=== PATIENT | female | born 1955 | race Caucasian/White ===

== ENCOUNTER 2018-12-11 13:15 | Inpatient (IN) | payer BC ==
[2018-12-11] MEDS: SOD CHLORIDE 0.9% 500 ML IV (14:01)
[2018-12-11 14:09] LABS: ADD MAN DIFF? NO
[2018-12-11 14:12] LABS: WHITE BLOOD COUNT 6.5 10^3/ul (4.8-10.8)
[2018-12-11 14:12] LABS: BASOPHILS % 0.2 % (0.0-2.0); EOSINOPHILS # 0.1 10^3/ul (0.0-0.5); EOSINOPHILS % 1.1 % (0.0-7.0); HEMATOCRIT 25.3 % (37.0-47.0); HEMOGLOBIN 7.9 g/dl (12.0-16.0); LYMPHOCYTES # 0.9 10^3/ul (0.8-2.9); LYMPHOCYTES % 13.3 % (15.0-51.0); MEAN CORPUSCULAR HGB CONC 31.2 g/dl (32.0-37.0); MEAN CORPUSCULAR VOLUME 102.4 fl (82.0-101.0); MEAN PLATELET VOLUME 9.2 fl (7.4-10.4); MONOCYTE # 0.8 10^3/ul (0.3-0.9); MONOCYTES % 11.5 % (0.0-11.0); NEUTROPHIL # 4.8 10^3/ul (1.6-7.5); PLATELET COUNT 132 10^3/UL (140-415); RED BLOOD COUNT 2.47 10^6/ul (4.20-5.40); RED CELL DISTRIBUTION WIDTH 16.3 % (11.5-14.5)
[2018-12-11] MEDS: DILTIAZEM 25 MG INJ IV (14:17)
[2018-12-11 14:29] LABS: ALANINE AMINOTRANSFERASE 7 IU/L (13-69); ALBUMIN/GLOBULIN RATIO 0.54; ALKALINE PHOSPHATASE 84 IU/L (42-121); ANION GAP 12 (5-13); ASPARTATE AMINO TRANSFERASE 35 IU/L (15-46); BILIRUBIN,INDIRECT 0.3 mg/dl (0-1.1); BILIRUBIN,TOTAL 0.3 mg/dl (0.2-1.3); BLOOD UREA NITROGEN 67 mg/dl (7-20); CALCIUM 9.4 mg/dl (8.4-10.2); CARBON DIOXIDE 16 mmol/L (21-31); CHLORIDE 115 mmol/L (97-110); CREATININE 4.13 mg/dl (0.44-1.00); Estimated GFR 11 mL/min (>60); GLUCOSE 105 mg/dl (70-220); POTASSIUM 4.3 mmol/L (3.5-5.1); SODIUM 143 mmol/L (135-144); TOTAL PROTEIN 8.5 g/dl (6.1-8.1)
[2018-12-11 14:31] LABS: INR 1.14; PROTIME 14.7 Sec (11.9-14.9); PT RATIO 1.1
[2018-12-11 14:32] LABS: PARTIAL THROMBOPLASTIN TIME 26.9 Sec (23.0-35.0)
[2018-12-11 14:40] LABS: TROPONIN-I 0.026 ng/ml (0.000-0.120)
[2018-12-11] MEDS: SOD CHLORIDE 0.9% 1,000 ML IV ×2 (14:52→19:26)
[2018-12-11] MEDS ORDERED: ONDANSETRON 4 MG INJ IV ×2 (19:30→20:30)
[2018-12-11] MEDS ORDERED: ACETAMINOPHEN 325 MG TAB PO (19:30)
[2018-12-11 20:15] LABS: AMMONIA 52 umol/l (9-30)
[2018-12-11] MEDS ORDERED: NACL 0.9% 3 ML SYG IV (20:30)
[2018-12-11] MEDS: SOD CHLORIDE 0.45% 1,000 ML IV (21:30)
[2018-12-11 22:25] LABS: CK-MB 1.06 ng/ml (0.0-2.4)
[2018-12-11 22:26] LABS: CREATINE KINASE < 20 IU/L (23-200); TROPONIN-I 0.027 ng/ml (0.000-0.120)
[2018-12-11] MEDS ORDERED: GLUCAGON 1 MG INJ IM (22:30)
[2018-12-11] MEDS ORDERED: GLUCOSE GEL 15 GRAM TUBE BUCCAL (22:30)
[2018-12-11] MEDS ORDERED: GLUCOSE GEL 15 GRAM TUBE PO ×2 (22:30)
[2018-12-11] MEDS ORDERED: DEXTROSE 50% 50 ML SYRINGE IV (22:30)
[2018-12-11] MEDS: CITRIC ACID/NA CITRATE 30 ML CUP PO (22:46)
[2018-12-11] MEDS: LACTULOSE 30ML CUP PO (22:46)
[2018-12-12] MEDS: LACTULOSE 30ML CUP PO ×4 (00:39→17:14)
[2018-12-12] MEDS: INSULIN GLARGINE [LANTus] (100 UNITS/ML) SYG SC ×3 (00:48→21:19)
[2018-12-12] MEDS: ACCU-CHEK XX (02:00)
[2018-12-12] MEDS: ACETAMINOPHEN 325 MG TAB PO (03:01)
[2018-12-12 03:20] LABS: CK-MB 1.07 ng/ml (0.0-2.4); CREATINE KINASE < 20 IU/L (23-200); TROPONIN-I 0.028 ng/ml (0.000-0.120)
[2018-12-12] MEDS: LEVOTHYROXINE 50 MCG TAB PO (06:27)
[2018-12-12 07:21] LABS: OCCULT BLOOD STOOL POSITIVE (NEGATIVE)
[2018-12-12] MEDS: DEXTROSE 50% 50 ML SYRINGE IV (07:43)
[2018-12-12] MEDS: INSULIN ASPART [NOVOLOG] 3 ML PEN SC ×4 (07:55→21:00)
[2018-12-12 08:25] LABS: ADD MAN DIFF? NO
[2018-12-12 08:29] LABS: ABNORMAL IP MESSAGE 1; BASOPHILS % 0.3 % (0.0-2.0); LYMPHOCYTES # 0.5 10^3/ul (0.8-2.9); LYMPHOCYTES % 12.1 % (15.0-51.0); MEAN CORPUSCULAR HEMOGLOBIN 31.8 pg (29.0-33.0); MEAN CORPUSCULAR VOLUME 99.5 fl (82.0-101.0); MEAN PLATELET VOLUME 8.4 fl (7.4-10.4); MONOCYTE # 0.5 10^3/ul (0.3-0.9); MONOCYTES % 12.6 % (0.0-11.0); NEUTROPHIL # 2.9 10^3/ul (1.6-7.5); PLATELET COUNT 82 10^3/UL (140-415); RED BLOOD COUNT 2.01 10^6/ul (4.20-5.40); RED CELL DISTRIBUTION WIDTH 16.1 % (11.5-14.5)
[2018-12-12 08:29] LABS: WHITE BLOOD COUNT 3.9 10^3/ul (4.8-10.8)
[2018-12-12 08:33] LABS: POSITIVE DIFF @See below
[2018-12-12 08:36] LABS: HEMOGLOBIN 6.4 g/dl (12.0-16.0)
[2018-12-12 09:00] LABS: DIGOXIN 1.2 ng/ml (1.0-2.0)
[2018-12-12] MEDS ORDERED: FUROSEMIDE 40 MG TAB PO (09:00)
[2018-12-12 09:01] LABS: ALANINE AMINOTRANSFERASE 12 IU/L (13-69); ALBUMIN 2.4 g/dl (3.3-4.9); ALBUMIN/GLOBULIN RATIO 0.54; ALKALINE PHOSPHATASE 69 IU/L (42-121); ANION GAP 8 (5-13); ASPARTATE AMINO TRANSFERASE 27 IU/L (15-46); BILIRUBIN,INDIRECT 0.1 mg/dl (0-1.1); BILIRUBIN,TOTAL 0.1 mg/dl (0.2-1.3); BLOOD UREA NITROGEN 63 mg/dl (7-20); CALCIUM 8.7 mg/dl (8.4-10.2); CARBON DIOXIDE 15 mmol/L (21-31); CHLORIDE 119 mmol/L (97-110); CHOL/HDL RATIO 5.1 RATIO; CHOLESTEROL 72 mg/dl (100-200); CREATININE 4.09 mg/dl (0.44-1.00); Estimated GFR 11 mL/min (>60); GLUCOSE 107 mg/dl (70-220); HDL CHOLESTEROL 14 mg/dl (35-98); LDL CHOLESTEROL,CALCULATED 36 mg/dl; SODIUM 142 mmol/L (135-144); TOTAL PROTEIN 6.8 g/dl (6.1-8.1); TRIGLYCERIDES 111 mg/dl (0-149)
[2018-12-12 09:13] LABS: HEMOGLOBIN A1C 5.9 % (0-5.9)
[2018-12-12] MEDS: GABAPENTIN 300 MG CAP PO ×3 (10:26→20:46)
[2018-12-12] MEDS: RIFAXIMIN 550 MG TAB PO ×2 (10:26→20:46)
[2018-12-12] MEDS: FAMOTIDINE 20 MG TAB PO (10:27)
[2018-12-12] MEDS: MULTIVITAMINS THERAPEUTIC TAB PO (10:27)
[2018-12-12] MEDS: FERROUS SULFATE (EC) 325 MG TAB PO (10:27)
[2018-12-12] MEDS: ALBUMIN HUMAN 25% 100 ML IV ×2 (10:34→17:14)
[2018-12-12 12:01] LABS: FOLATE 7.8 ng/ml (2.8-20.0)
[2018-12-12] MEDS: DIGOXIN 0.125 MG TAB PO (12:43)
[2018-12-12] MEDS: CEFTRIAXONE 1 GM/50 ML (PMX) 50 ML IVPB (14:27)
[2018-12-12] MEDS: PROPRANOLOL 10 MG TAB PO ×2 (14:27→20:46)
[2018-12-12 16:10] LABS: ADD UMIC YES; UR ASCORBIC ACID NEGATIVE (NEGATIVE); UR BACTERIA MANY /HPF (NONE SEEN); UR BILIRUBIN (Dip) NEGATIVE (NEGATIVE); UR BLOOD (Dip) 2+ mg/dL (NEGATIVE); UR CLARITY TURBID (CLEAR); UR COLOR AMBER (YELLOW); UR GLUCOSE (Dip) NEGATIVE (NEGATIVE); UR KETONES (Dip) NEGATIVE (NEGATIVE); UR LEUKOCYTE ESTERASE (Dip) 2+ Leu/ul (NEGATIVE); UR NITRITE (Dip) NEGATIVE (NEGATIVE); UR RBC 93 /HPF (0-5); UR SPECIFIC GRAVITY (Dip) 1.011 (1.003-1.030); UR SQUAMOUS EPITHELIAL CELL FEW /HPF (FEW); UR TOTAL PROTEIN (Dip) 2+ mg/dl (NEGATIVE); UR UROBILINOGEN (Dip) NEGATIVE (NEGATIVE); UR WBC > 182 /HPF (0-5)
[2018-12-12 16:20] LABS: SODIUM,URINE RANDOM 81 mmol/L (30-90)
[2018-12-12 16:20] LABS: CREATININE,URINE RANDOM 37.57 mg/dl (20-320)
[2018-12-12] MEDS: PANTOPRAZOLE 40 MG INJ IV (17:14)
[2018-12-12] MEDS: SOD CHLORIDE 0.45% 1,000 ML IV (20:45)
[2018-12-12 22:13] LABS: IMMEDIATE SPIN CROSSMATCH 1 2
[2018-12-13] MEDS: LACTULOSE 30ML CUP PO ×4 (00:59→17:03)
[2018-12-13] MEDS: ALBUMIN HUMAN 25% 100 ML IV ×3 (00:59→16:36)
[2018-12-13] MEDS: ACCU-CHEK XX (02:00)
[2018-12-13 04:31] LABS: TYPE AND SCREEN 1
[2018-12-13] MEDS: PANTOPRAZOLE 40 MG INJ IV ×2 (06:01→17:00)
[2018-12-13] MEDS: LEVOTHYROXINE 50 MCG TAB PO (06:01)
[2018-12-13 06:12] LABS: ADD MAN DIFF? NO
[2018-12-13 06:21] LABS: ABNORMAL IP MESSAGE 1; BASOPHILS % 0.2 % (0.0-2.0); EOSINOPHILS # 0.1 10^3/ul (0.0-0.5); EOSINOPHILS % 1.6 % (0.0-7.0); HEMATOCRIT 26.3 % (37.0-47.0); HEMOGLOBIN 8.7 g/dl (12.0-16.0); LYMPHOCYTES # 0.7 10^3/ul (0.8-2.9); LYMPHOCYTES % 11.7 % (15.0-51.0); MEAN CORPUSCULAR HEMOGLOBIN 31.8 pg (29.0-33.0); MEAN CORPUSCULAR HGB CONC 33.1 g/dl (32.0-37.0); MEAN PLATELET VOLUME 8.4 fl (7.4-10.4); MONOCYTE # 0.6 10^3/ul (0.3-0.9); MONOCYTES % 10.5 % (0.0-11.0); NEUTROPHIL # 4.3 10^3/ul (1.6-7.5); NEUTROPHILS % 74.6 % (39.0-77.0); PLATELET COUNT 97 10^3/UL (140-415); RED BLOOD COUNT 2.74 10^6/ul (4.20-5.40); RED CELL DISTRIBUTION WIDTH 16.8 % (11.5-14.5)
[2018-12-13 06:21] LABS: WHITE BLOOD COUNT 5.7 10^3/ul (4.8-10.8)
[2018-12-13 06:28] LABS: POSITIVE DIFF @See below
[2018-12-13 06:38] LABS: INR 1.21; PROTIME 15.4 Sec (11.9-14.9); PT RATIO 1.2
[2018-12-13 06:39] LABS: PARTIAL THROMBOPLASTIN TIME 31.5 Sec (23.0-35.0)
[2018-12-13 07:06] LABS: AMMONIA 15 umol/l (9-30)
[2018-12-13 07:19] LABS: ANION GAP 9 (5-13); BLOOD UREA NITROGEN 54 mg/dl (7-20); CALCIUM 9.2 mg/dl (8.4-10.2); CARBON DIOXIDE 14 mmol/L (21-31); CHLORIDE 119 mmol/L (97-110); CREATININE 3.52 mg/dl (0.44-1.00); Estimated GFR 13 mL/min (>60); GLUCOSE 79 mg/dl (70-220); MAGNESIUM 1.9 mg/dl (1.7-2.5); PHOSPHORUS 5.3 mg/dl (2.5-4.9); POTASSIUM 3.6 mmol/L (3.5-5.1); SODIUM 142 mmol/L (135-144)
[2018-12-13] MEDS: INSULIN ASPART [NOVOLOG] 3 ML PEN SC ×4 (07:54→20:40)
[2018-12-13 07:57] LABS: HEPATITIS B SURFACE ANTIBODY POSITIVE (NEGATIVE)
[2018-12-13 08:06] LABS: ALANINE AMINOTRANSFERASE 14 IU/L (13-69); ALBUMIN 2.8 g/dl (3.3-4.9); ALKALINE PHOSPHATASE 53 IU/L (42-121); ASPARTATE AMINO TRANSFERASE 33 IU/L (15-46)
[2018-12-13] MEDS: FAMOTIDINE 20 MG TAB PO (09:37)
[2018-12-13] MEDS: FERROUS SULFATE (EC) 325 MG TAB PO (09:37)
[2018-12-13] MEDS: MULTIVITAMINS THERAPEUTIC TAB PO (09:37)
[2018-12-13] MEDS: PROPRANOLOL 10 MG TAB PO ×4 (09:37→20:59)
[2018-12-13] MEDS: GABAPENTIN 300 MG CAP PO ×3 (09:37→20:57)
[2018-12-13] MEDS: RIFAXIMIN 550 MG TAB PO ×2 (09:37→20:57)
[2018-12-13] MEDS: NYSTATIN 30 GM POWDER BTL TOP ×2 (09:38→20:58)
[2018-12-13 11:13] LABS: Allen Test ACCEPTAB; Arterial Base Excess -9.8 mmol/L (-3.0-3); Arterial Blood Gas Oxygen Sat 96.3 mmHG (95.0-98.0); Arterial COHb 1.8 % (0.0-3.0); Arterial Fraction of Oxyhgb 94.4 % (93.0-99.0); Arterial HCO3 14.6 mmol/L (22.0-26.0); Arterial MetHb 0.2 % (0.0-1.5); Arterial pCO2 26.8 mmhg (35-45); MODE ROOM AIR; Site Right Radial
[2018-12-13 12:25] LABS: HEPATITIS B CORE ANTIBODY NEGATIVE (NEGATIVE)
[2018-12-13 12:26] LABS: HEPATITIS C VIRAL ANTIBODY REACTIVE (NEGATIVE)
[2018-12-13] MEDS: CEFTRIAXONE 1 GM/50 ML (PMX) 50 ML IVPB (13:16)
[2018-12-13] MEDS: BISACODYL (EC) 5 MG TAB PO (13:19)
[2018-12-13 14:52] LABS: CREATININE, RANDOM URINE 41 mg/dL (20-275); MICROALBUMIN 16.2 mg/dL; MICROALBUMIN/CREATININE RATIO 395 (<30)
[2018-12-13] MEDS: MUPIROCIN 2% 22 GM OINT TOP ×2 (15:42→20:58)
[2018-12-13] MEDS: PEG/ELECTROLYTES 4L BTL PO (15:49)
[2018-12-13 18:46] LABS: PTH CALCIUM 8.1 mg/dL (8.6-10.4)
[2018-12-14] MEDS: ALBUMIN HUMAN 25% 100 ML IV (01:38)
[2018-12-14] MEDS: ACCU-CHEK XX (02:00)
[2018-12-14] MEDS: BISACODYL (EC) 5 MG TAB PO (05:21)
[2018-12-14] MEDS: PEG/ELECTROLYTES 4L BTL PO (05:22)
[2018-12-14] MEDS: PANTOPRAZOLE 40 MG INJ IV ×2 (06:06→17:02)
[2018-12-14] MEDS: LEVOTHYROXINE 50 MCG TAB PO (06:06)
[2018-12-14] MEDS: LACTULOSE 30ML CUP PO ×4 (06:56→17:02)
[2018-12-14] MEDS: INSULIN ASPART [NOVOLOG] 3 ML PEN SC ×4 (08:14→21:00)
[2018-12-14 08:36] LABS: ADD MAN DIFF? NO
[2018-12-14 08:43] LABS: WHITE BLOOD COUNT 7.9 10^3/ul (4.8-10.8)
[2018-12-14 08:43] LABS: ABNORMAL IP MESSAGE 1; BASOPHILS % 0.3 % (0.0-2.0); EOSINOPHILS # 0.2 10^3/ul (0.0-0.5); EOSINOPHILS % 1.9 % (0.0-7.0); HEMATOCRIT 25.1 % (37.0-47.0); HEMOGLOBIN 8.1 g/dl (12.0-16.0); LYMPHOCYTES # 0.9 10^3/ul (0.8-2.9); MEAN CORPUSCULAR HEMOGLOBIN 31.3 pg (29.0-33.0); MEAN CORPUSCULAR HGB CONC 32.3 g/dl (32.0-37.0); MEAN CORPUSCULAR VOLUME 96.9 fl (82.0-101.0); MEAN PLATELET VOLUME 8.9 fl (7.4-10.4); MONOCYTE # 0.7 10^3/ul (0.3-0.9); NEUTROPHIL # 6.1 10^3/ul (1.6-7.5); NEUTROPHILS % 77.3 % (39.0-77.0); PLATELET COUNT 82 10^3/UL (140-415); RED BLOOD COUNT 2.59 10^6/ul (4.20-5.40); RED CELL DISTRIBUTION WIDTH 16.7 % (11.5-14.5)
[2018-12-14] MEDS: PROPRANOLOL 10 MG TAB PO ×3 (09:00→21:46)
[2018-12-14 09:02] LABS: INR 1.36; PROTIME 16.9 Sec (11.9-14.9); PT RATIO 1.3
[2018-12-14 09:03] LABS: PARTIAL THROMBOPLASTIN TIME 32.7 Sec (23.0-35.0)
[2018-12-14 09:11] LABS: POSITIVE DIFF @See below
[2018-12-14] MEDS: GABAPENTIN 300 MG CAP PO ×3 (09:22→21:41)
[2018-12-14] MEDS: RIFAXIMIN 550 MG TAB PO ×2 (09:22→21:41)
[2018-12-14] MEDS: FERROUS SULFATE (EC) 325 MG TAB PO (09:22)
[2018-12-14] MEDS: MULTIVITAMINS THERAPEUTIC TAB PO (09:22)
[2018-12-14] MEDS: MUPIROCIN 2% 22 GM OINT TOP ×2 (09:23→21:42)
[2018-12-14 09:54] LABS: ANION GAP 11 (5-13); BLOOD UREA NITROGEN 45 mg/dl (7-20); CALCIUM 9.1 mg/dl (8.4-10.2); CARBON DIOXIDE 14 mmol/L (21-31); CHLORIDE 117 mmol/L (97-110); CREATININE 3.35 mg/dl (0.44-1.00); Estimated GFR 14 mL/min (>60); GLUCOSE 186 mg/dl (70-220); MAGNESIUM 1.9 mg/dl (1.7-2.5); PHOSPHORUS 4.5 mg/dl (2.5-4.9); POTASSIUM 3.5 mmol/L (3.5-5.1); SODIUM 142 mmol/L (135-144)
[2018-12-14] MEDS: NYSTATIN 30 GM POWDER BTL TOP ×2 (12:22→21:41)
[2018-12-14 14:51] LABS: PTH INTACT 34 pg/mL (14-64)
[2018-12-14] MEDS: CEFTRIAXONE 1 GM/50 ML (PMX) 50 ML IVPB (15:09)
[2018-12-15] MEDS: LACTULOSE 30ML CUP PO ×5 (01:30→23:56)
[2018-12-15] MEDS: ACCU-CHEK XX (02:00)
[2018-12-15] MEDS: PANTOPRAZOLE 40 MG INJ IV ×2 (06:05→17:51)
[2018-12-15] MEDS: LEVOTHYROXINE 50 MCG TAB PO (06:05)
[2018-12-15 07:04] LABS: ADD MAN DIFF? NO
[2018-12-15 07:06] LABS: WHITE BLOOD COUNT 7.5 10^3/ul (4.8-10.8)
[2018-12-15 07:06] LABS: ABNORMAL IP MESSAGE 1; BASOPHILS % 0.3 % (0.0-2.0); EOSINOPHILS # 0.2 10^3/ul (0.0-0.5); EOSINOPHILS % 3.1 % (0.0-7.0); HEMATOCRIT 26.4 % (37.0-47.0); HEMOGLOBIN 8.4 g/dl (12.0-16.0); LYMPHOCYTES % 12.6 % (15.0-51.0); MEAN CORPUSCULAR HEMOGLOBIN 31.2 pg (29.0-33.0); MEAN CORPUSCULAR HGB CONC 31.8 g/dl (32.0-37.0); MEAN CORPUSCULAR VOLUME 98.1 fl (82.0-101.0); MEAN PLATELET VOLUME 9.3 fl (7.4-10.4); MONOCYTE # 0.6 10^3/ul (0.3-0.9); NEUTROPHIL # 5.7 10^3/ul (1.6-7.5); NEUTROPHILS % 75.1 % (39.0-77.0); PLATELET COUNT 84 10^3/UL (140-415); RED BLOOD COUNT 2.69 10^6/ul (4.20-5.40); RED CELL DISTRIBUTION WIDTH 16.3 % (11.5-14.5)
[2018-12-15 07:08] LABS: POSITIVE DIFF @See below
[2018-12-15 07:23] LABS: ANION GAP 10 (5-13); BLOOD UREA NITROGEN 42 mg/dl (7-20); CALCIUM 8.9 mg/dl (8.4-10.2); CARBON DIOXIDE 15 mmol/L (21-31); CHLORIDE 117 mmol/L (97-110); Estimated GFR 15 mL/min (>60); GLUCOSE 109 mg/dl (70-220); MAGNESIUM 1.9 mg/dl (1.7-2.5); PHOSPHORUS 4.9 mg/dl (2.5-4.9); POTASSIUM 3.6 mmol/L (3.5-5.1); SODIUM 142 mmol/L (135-144)
[2018-12-15] MEDS: INSULIN ASPART [NOVOLOG] 3 ML PEN SC ×4 (07:55→21:00)
[2018-12-15] MEDS: RIFAXIMIN 550 MG TAB PO ×2 (08:38→21:45)
[2018-12-15] MEDS: MULTIVITAMINS THERAPEUTIC TAB PO (08:38)
[2018-12-15] MEDS: GABAPENTIN 300 MG CAP PO ×3 (08:38→21:45)
[2018-12-15] MEDS: FERROUS SULFATE (EC) 325 MG TAB PO (08:39)
[2018-12-15] MEDS: PROPRANOLOL 10 MG TAB PO (08:39)
[2018-12-15] MEDS: MUPIROCIN 2% 22 GM OINT TOP ×2 (08:40→21:47)
[2018-12-15] MEDS: NYSTATIN 30 GM POWDER BTL TOP ×2 (08:40→21:47)
[2018-12-15] MEDS: PROPRANOLOL 20 MG TAB PO ×3 (09:00→21:00)
[2018-12-15] MEDS: CEFTRIAXONE 1 GM/50 ML (PMX) 50 ML IVPB (13:26)
[2018-12-16] MEDS: SOD CHLORIDE 0.9% 1,000 ML IV (01:46)
[2018-12-16] MEDS: ACCU-CHEK XX (03:00)
[2018-12-16] MEDS: PANTOPRAZOLE 40 MG INJ IV ×2 (05:32→17:49)
[2018-12-16] MEDS: LACTULOSE 30ML CUP PO ×3 (05:32→17:49)
[2018-12-16] MEDS: LEVOTHYROXINE 50 MCG TAB PO (06:49)
[2018-12-16 06:54] LABS: ADD MAN DIFF? NO
[2018-12-16 06:59] LABS: ABNORMAL IP MESSAGE 1; BASOPHILS % 0.4 % (0.0-2.0); EOSINOPHILS # 0.3 10^3/ul (0.0-0.5); EOSINOPHILS % 4.2 % (0.0-7.0); HEMATOCRIT 26.2 % (37.0-47.0); HEMOGLOBIN 8.3 g/dl (12.0-16.0); LYMPHOCYTES # 0.9 10^3/ul (0.8-2.9); LYMPHOCYTES % 11.6 % (15.0-51.0); MEAN CORPUSCULAR HEMOGLOBIN 31.2 pg (29.0-33.0); MEAN CORPUSCULAR HGB CONC 31.7 g/dl (32.0-37.0); MEAN CORPUSCULAR VOLUME 98.5 fl (82.0-101.0); MEAN PLATELET VOLUME 9.4 fl (7.4-10.4); MONOCYTE # 0.7 10^3/ul (0.3-0.9); MONOCYTES % 8.6 % (0.0-11.0); NEUTROPHIL # 5.9 10^3/ul (1.6-7.5); NEUTROPHILS % 73.8 % (39.0-77.0); PLATELET COUNT 87 10^3/UL (140-415); RED BLOOD COUNT 2.66 10^6/ul (4.20-5.40); RED CELL DISTRIBUTION WIDTH 15.9 % (11.5-14.5)
[2018-12-16 07:02] LABS: POSITIVE DIFF @See below
[2018-12-16 07:39] LABS: ALANINE AMINOTRANSFERASE 16 IU/L (13-69); ALBUMIN 2.5 g/dl (3.3-4.9); ALKALINE PHOSPHATASE 51 IU/L (42-121); ANION GAP 12 (5-13); ASPARTATE AMINO TRANSFERASE 23 IU/L (15-46); BILIRUBIN,INDIRECT 0.5 mg/dl (0-1.1); BILIRUBIN,TOTAL 0.5 mg/dl (0.2-1.3); BLOOD UREA NITROGEN 37 mg/dl (7-20); CALCIUM 8.6 mg/dl (8.4-10.2); CARBON DIOXIDE 13 mmol/L (21-31); CHLORIDE 113 mmol/L (97-110); CREATININE 3.04 mg/dl (0.44-1.00); Estimated GFR 15 mL/min (>60); GLUCOSE 95 mg/dl (70-220); MAGNESIUM 1.6 mg/dl (1.7-2.5); POTASSIUM 3.4 mmol/L (3.5-5.1); SODIUM 138 mmol/L (135-144); TOTAL PROTEIN 6.6 g/dl (6.1-8.1)
[2018-12-16] MEDS: INSULIN ASPART [NOVOLOG] 3 ML PEN SC ×4 (07:55→21:00)
[2018-12-16] MEDS: MULTIVITAMINS THERAPEUTIC TAB PO (08:37)
[2018-12-16] MEDS: GABAPENTIN 300 MG CAP PO ×3 (08:37→21:05)
[2018-12-16] MEDS: RIFAXIMIN 550 MG TAB PO ×2 (08:38→21:05)
[2018-12-16] MEDS: FERROUS SULFATE (EC) 325 MG TAB PO (08:38)
[2018-12-16] MEDS: MUPIROCIN 2% 22 GM OINT TOP ×2 (08:38→21:06)
[2018-12-16] MEDS: NYSTATIN 30 GM POWDER BTL TOP ×2 (08:38→21:06)
[2018-12-16] MEDS: PROPRANOLOL 20 MG TAB PO ×3 (08:58→21:00)
[2018-12-16] MEDS: MAGNESIUM SULFATE 2 GM/50 ML 50 ML IVPB (09:35)
[2018-12-16] MEDS: POTASSIUM CHLORIDE (SR) 20 MEQ TAB PO (09:35)
[2018-12-16] MEDS: CIPROFLOXACIN 500 MG TAB PO (12:39)
[2018-12-16] MEDS: BISACODYL (EC) 5 MG TAB PO ×2 (16:34→21:05)
[2018-12-16] MEDS ORDERED: CIPROFLOXACIN 250 MG TAB PO (18:00)
[2018-12-16] MEDS: MAGNESIUM CITRATE 300 ML BTL PO (18:36)
[2018-12-16] MEDS: POLYETHYLENE GLYCOL 3350 119 GM POWDER PO ×2 (21:04)
[2018-12-17] MEDS: ACCU-CHEK XX (02:00)
[2018-12-17] MEDS: CIPROFLOXACIN 500 MG TAB PO (05:14)
[2018-12-17] MEDS: LACTULOSE 30ML CUP PO ×4 (05:14→18:00)
[2018-12-17] MEDS: PANTOPRAZOLE 40 MG INJ IV ×2 (05:14→18:32)
[2018-12-17] MEDS ORDERED: PROPOFOL 200 MG INJ (07:00)
[2018-12-17] MEDS: LEVOTHYROXINE 50 MCG TAB PO (07:08)
[2018-12-17] MEDS: INSULIN ASPART [NOVOLOG] 3 ML PEN SC ×4 (07:55→20:26)
[2018-12-17] MEDS: MULTIVITAMINS THERAPEUTIC TAB PO (08:39)
[2018-12-17] MEDS: FERROUS SULFATE (EC) 325 MG TAB PO (08:39)
[2018-12-17] MEDS: RIFAXIMIN 550 MG TAB PO ×2 (08:39→20:26)
[2018-12-17] MEDS: PROPRANOLOL 20 MG TAB PO ×3 (08:40→20:26)
[2018-12-17] MEDS: GABAPENTIN 300 MG CAP PO ×3 (08:40→20:26)
[2018-12-17] MEDS: MUPIROCIN 2% 22 GM OINT TOP ×2 (08:40→20:24)
[2018-12-17] MEDS: NYSTATIN 30 GM POWDER BTL TOP ×2 (08:40→20:25)
[2018-12-17 09:26] LABS: ADD MAN DIFF? NO
[2018-12-17 09:32] LABS: WHITE BLOOD COUNT 5.6 10^3/ul (4.8-10.8)
[2018-12-17 09:32] LABS: ABNORMAL IP MESSAGE 1; BASOPHILS % 0.2 % (0.0-2.0); EOSINOPHILS # 0.2 10^3/ul (0.0-0.5); HEMATOCRIT 23.5 % (37.0-47.0); HEMOGLOBIN 7.5 g/dl (12.0-16.0); LYMPHOCYTES # 0.7 10^3/ul (0.8-2.9); LYMPHOCYTES % 13.2 % (15.0-51.0); MEAN CORPUSCULAR HEMOGLOBIN 31.1 pg (29.0-33.0); MEAN CORPUSCULAR HGB CONC 31.9 g/dl (32.0-37.0); MEAN CORPUSCULAR VOLUME 97.5 fl (82.0-101.0); MEAN PLATELET VOLUME 9.3 fl (7.4-10.4); MONOCYTE # 0.5 10^3/ul (0.3-0.9); MONOCYTES % 9.4 % (0.0-11.0); NEUTROPHILS % 72.1 % (39.0-77.0); PLATELET COUNT 94 10^3/UL (140-415); RED BLOOD COUNT 2.41 10^6/ul (4.20-5.40); RED CELL DISTRIBUTION WIDTH 15.8 % (11.5-14.5)
[2018-12-17 09:46] LABS: POSITIVE DIFF @See below
[2018-12-17 09:48] LABS: AMMONIA 26 umol/l (9-30)
[2018-12-17 09:52] LABS: INR 1.33; PARTIAL THROMBOPLASTIN TIME 31.6 Sec (23.0-35.0); PROTIME 16.6 Sec (11.9-14.9); PT RATIO 1.3
[2018-12-17 09:53] LABS: ALANINE AMINOTRANSFERASE 18 IU/L (13-69); ALBUMIN 2.6 g/dl (3.3-4.9); ALBUMIN/GLOBULIN RATIO 0.66; ALKALINE PHOSPHATASE 51 IU/L (42-121); ANION GAP 11 (5-13); ASPARTATE AMINO TRANSFERASE 30 IU/L (15-46); BILIRUBIN,INDIRECT 0.4 mg/dl (0-1.1); BILIRUBIN,TOTAL 0.4 mg/dl (0.2-1.3); BLOOD UREA NITROGEN 33 mg/dl (7-20); CARBON DIOXIDE 13 mmol/L (21-31); CHLORIDE 114 mmol/L (97-110); CREATININE 2.76 mg/dl (0.44-1.00); Estimated GFR 17 mL/min (>60); GLUCOSE 125 mg/dl (70-220); SODIUM 138 mmol/L (135-144); TOTAL PROTEIN 6.5 g/dl (6.1-8.1)
[2018-12-17 10:24] LABS: MAGNESIUM 2.3 mg/dl (1.7-2.5)
[2018-12-17] MEDS: PROPOFOL 60 ML (16:32)
[2018-12-17] MEDS: LIDOCAINE 2% (SDV) 5 ML INJ (16:32)
[2018-12-17] MEDS ORDERED: FENTAnyl 50 MCG/ML VIAL IV (17:00)
[2018-12-17] MEDS ORDERED: ONDANSETRON 4 MG INJ IV (17:00)
[2018-12-17] MEDS: LACTOBACILLUS RHAMNOSUS CAP PO (20:38)
[2018-12-18] MEDS: ACCU-CHEK XX (00:42)
[2018-12-18] MEDS: PANTOPRAZOLE 40 MG INJ IV (05:31)
[2018-12-18] MEDS: CIPROFLOXACIN 500 MG TAB PO ×2 (05:31→18:10)
[2018-12-18] MEDS: LACTULOSE 30ML CUP PO ×4 (05:31→18:10)
[2018-12-18] MEDS: LEVOTHYROXINE 50 MCG TAB PO (05:32)
[2018-12-18 05:55] LABS: ADD MAN DIFF? NO
[2018-12-18 06:00] LABS: WHITE BLOOD COUNT 5.7 10^3/ul (4.8-10.8)
[2018-12-18 06:00] LABS: ABNORMAL IP MESSAGE 1; BASOPHILS % 0.5 % (0.0-2.0); EOSINOPHILS # 0.3 10^3/ul (0.0-0.5); EOSINOPHILS % 4.9 % (0.0-7.0); HEMATOCRIT 25.1 % (37.0-47.0); LYMPHOCYTES # 0.9 10^3/ul (0.8-2.9); LYMPHOCYTES % 15.2 % (15.0-51.0); MEAN CORPUSCULAR HEMOGLOBIN 31.3 pg (29.0-33.0); MEAN CORPUSCULAR HGB CONC 31.9 g/dl (32.0-37.0); MEAN PLATELET VOLUME 9.4 fl (7.4-10.4); MONOCYTE # 0.7 10^3/ul (0.3-0.9); MONOCYTES % 12.2 % (0.0-11.0); NEUTROPHIL # 3.8 10^3/ul (1.6-7.5); NEUTROPHILS % 66.2 % (39.0-77.0); PLATELET COUNT 99 10^3/UL (140-415); RED BLOOD COUNT 2.56 10^6/ul (4.20-5.40); RED CELL DISTRIBUTION WIDTH 15.9 % (11.5-14.5)
[2018-12-18 06:07] LABS: POSITIVE DIFF @See below
[2018-12-18 06:36] LABS: ANION GAP 8 (5-13); BLOOD UREA NITROGEN 32 mg/dl (7-20); CARBON DIOXIDE 15 mmol/L (21-31); CHLORIDE 113 mmol/L (97-110); CREATININE 2.68 mg/dl (0.44-1.00); Estimated GFR 18 mL/min (>60); GLUCOSE 106 mg/dl (70-220); MAGNESIUM 2.2 mg/dl (1.7-2.5); PHOSPHORUS 4.5 mg/dl (2.5-4.9); POTASSIUM 3.9 mmol/L (3.5-5.1); SODIUM 136 mmol/L (135-144)
[2018-12-18] MEDS: INSULIN ASPART [NOVOLOG] 3 ML PEN SC ×4 (07:55→21:00)
[2018-12-18] MEDS: GABAPENTIN 300 MG CAP PO ×3 (08:35→20:23)
[2018-12-18] MEDS: RIFAXIMIN 550 MG TAB PO ×2 (08:35→20:23)
[2018-12-18] MEDS: MULTIVITAMINS THERAPEUTIC TAB PO (08:35)
[2018-12-18] MEDS: FERROUS SULFATE (EC) 325 MG TAB PO (08:35)
[2018-12-18] MEDS: LACTOBACILLUS RHAMNOSUS CAP PO ×2 (08:35→20:23)
[2018-12-18] MEDS: PROPRANOLOL 20 MG TAB PO ×3 (08:36→20:22)
[2018-12-18] MEDS: NYSTATIN 30 GM POWDER BTL TOP ×2 (08:36→22:26)
[2018-12-18] MEDS: MUPIROCIN 2% 22 GM OINT TOP ×2 (08:37→22:26)
[2018-12-18] MEDS: CITRIC ACID/NA CITRATE 30 ML CUP PO ×2 (09:00→20:23)
[2018-12-18] MEDS: PANTOPRAZOLE (EC) 40 MG TAB PO (18:10)
[2018-12-19] MEDS: ACCU-CHEK XX (02:00)
[2018-12-19 06:08] LABS: ADD MAN DIFF? NO
[2018-12-19 06:17] LABS: ABNORMAL IP MESSAGE 1; BASOPHILS % 0.3 % (0.0-2.0); EOSINOPHILS # 0.2 10^3/ul (0.0-0.5); EOSINOPHILS % 2.4 % (0.0-7.0); HEMATOCRIT 22.9 % (37.0-47.0); HEMOGLOBIN 7.7 g/dl (12.0-16.0); LYMPHOCYTES # 0.9 10^3/ul (0.8-2.9); LYMPHOCYTES % 13.9 % (15.0-51.0); MEAN CORPUSCULAR HEMOGLOBIN 32.2 pg (29.0-33.0); MEAN CORPUSCULAR HGB CONC 33.6 g/dl (32.0-37.0); MEAN CORPUSCULAR VOLUME 95.8 fl (82.0-101.0); MEAN PLATELET VOLUME 9.5 fl (7.4-10.4); MONOCYTE # 0.6 10^3/ul (0.3-0.9); NEUTROPHIL # 4.7 10^3/ul (1.6-7.5); NEUTROPHILS % 72.9 % (39.0-77.0); PLATELET COUNT 95 10^3/UL (140-415); RED BLOOD COUNT 2.39 10^6/ul (4.20-5.40); RED CELL DISTRIBUTION WIDTH 15.8 % (11.5-14.5)
[2018-12-19 06:17] LABS: WHITE BLOOD COUNT 6.4 10^3/ul (4.8-10.8)
[2018-12-19] MEDS: LACTULOSE 30ML CUP PO ×4 (06:27→18:45)
[2018-12-19] MEDS: LEVOTHYROXINE 50 MCG TAB PO (06:27)
[2018-12-19] MEDS: PANTOPRAZOLE (EC) 40 MG TAB PO ×2 (06:27→18:45)
[2018-12-19 06:34] LABS: POSITIVE DIFF @See below
[2018-12-19 06:46] LABS: ANION GAP 7 (5-13); BLOOD UREA NITROGEN 34 mg/dl (7-20); CALCIUM 9.1 mg/dl (8.4-10.2); CARBON DIOXIDE 17 mmol/L (21-31); CHLORIDE 112 mmol/L (97-110); CREATININE 2.67 mg/dl (0.44-1.00); Estimated GFR 18 mL/min (>60); GLUCOSE 142 mg/dl (70-220); PHOSPHORUS 4.2 mg/dl (2.5-4.9); POTASSIUM 4.5 mmol/L (3.5-5.1); SODIUM 136 mmol/L (135-144)
[2018-12-19] MEDS: MULTIVITAMINS THERAPEUTIC TAB PO (08:10)
[2018-12-19] MEDS: LACTOBACILLUS RHAMNOSUS CAP PO ×2 (08:10→21:29)
[2018-12-19] MEDS: RIFAXIMIN 550 MG TAB PO ×2 (08:10→21:29)
[2018-12-19] MEDS: FERROUS SULFATE (EC) 325 MG TAB PO (08:10)
[2018-12-19] MEDS: GABAPENTIN 300 MG CAP PO ×3 (08:10→21:29)
[2018-12-19] MEDS: CITRIC ACID/NA CITRATE 30 ML CUP PO ×2 (08:11→21:28)
[2018-12-19] MEDS: PROPRANOLOL 20 MG TAB PO ×3 (08:11→21:00)
[2018-12-19] MEDS: INSULIN ASPART [NOVOLOG] 3 ML PEN SC ×4 (08:13→21:00)
[2018-12-19] MEDS: MUPIROCIN 2% 22 GM OINT TOP ×2 (08:14→21:29)
[2018-12-19] MEDS: NYSTATIN 30 GM POWDER BTL TOP ×2 (08:14→21:29)
[2018-12-19] MEDS: CIPROFLOXACIN 500 MG TAB PO (12:55)
[2018-12-20] MEDS: ACCU-CHEK XX (02:00)
[2018-12-20] MEDS: LEVOTHYROXINE 50 MCG TAB PO (06:42)
[2018-12-20] MEDS: PANTOPRAZOLE (EC) 40 MG TAB PO ×2 (06:42→17:00)
[2018-12-20] MEDS: LACTULOSE 30ML CUP PO ×4 (06:42→16:56)
[2018-12-20] MEDS: CIPROFLOXACIN 500 MG TAB PO (06:42)
[2018-12-20 06:55] LABS: ANION GAP 8 (5-13); BLOOD UREA NITROGEN 35 mg/dl (7-20); CALCIUM 8.8 mg/dl (8.4-10.2); CARBON DIOXIDE 15 mmol/L (21-31); CHLORIDE 110 mmol/L (97-110); CREATININE 2.94 mg/dl (0.44-1.00); Estimated GFR 16 mL/min (>60); GLUCOSE 128 mg/dl (70-220); POTASSIUM 4.2 mmol/L (3.5-5.1); SODIUM 133 mmol/L (135-144)
[2018-12-20] MEDS: FERROUS SULFATE (EC) 325 MG TAB PO (08:59)
[2018-12-20] MEDS: CITRIC ACID/NA CITRATE 30 ML CUP PO ×2 (08:59→20:56)
[2018-12-20] MEDS: RIFAXIMIN 550 MG TAB PO ×2 (08:59→20:56)
[2018-12-20] MEDS: PROPRANOLOL 20 MG TAB PO ×3 (09:00→20:56)
[2018-12-20] MEDS: MULTIVITAMINS THERAPEUTIC TAB PO (09:00)
[2018-12-20] MEDS: GABAPENTIN 300 MG CAP PO ×3 (09:00→20:56)
[2018-12-20] MEDS: NYSTATIN 30 GM POWDER BTL TOP ×2 (09:01→21:56)
[2018-12-20] MEDS: MUPIROCIN 2% 22 GM OINT TOP (09:01)
[2018-12-20] MEDS: LACTOBACILLUS RHAMNOSUS CAP PO ×2 (09:02→20:55)
[2018-12-20] MEDS: INSULIN ASPART [NOVOLOG] 3 ML PEN SC ×4 (09:10→20:57)
[2018-12-21] MEDS: LACTULOSE 30ML CUP PO ×4 (00:30→17:41)
[2018-12-21] MEDS: CIPROFLOXACIN 500 MG TAB PO ×2 (00:30→17:40)
[2018-12-21] MEDS: ACCU-CHEK XX (02:00)
[2018-12-21] MEDS: PANTOPRAZOLE (EC) 40 MG TAB PO ×2 (05:43→17:43)
[2018-12-21] MEDS: LEVOTHYROXINE 50 MCG TAB PO (05:43)
[2018-12-21 07:52] LABS: ADD MAN DIFF? NO
[2018-12-21 07:58] LABS: ABNORMAL IP MESSAGE 1; BASOPHILS % 0.4 % (0.0-2.0); EOSINOPHILS # 0.2 10^3/ul (0.0-0.5); EOSINOPHILS % 2.8 % (0.0-7.0); HEMATOCRIT 21.9 % (37.0-47.0); LYMPHOCYTES % 17.9 % (15.0-51.0); MEAN CORPUSCULAR HEMOGLOBIN 31.8 pg (29.0-33.0); MEAN CORPUSCULAR VOLUME 99.5 fl (82.0-101.0); MEAN PLATELET VOLUME 9.2 fl (7.4-10.4); MONOCYTE # 0.7 10^3/ul (0.3-0.9); NEUTROPHIL # 3.5 10^3/ul (1.6-7.5); NEUTROPHILS % 65.1 % (39.0-77.0); RED CELL DISTRIBUTION WIDTH 16.1 % (11.5-14.5)
[2018-12-21 07:58] LABS: WHITE BLOOD COUNT 5.3 10^3/ul (4.8-10.8)
[2018-12-21 08:02] LABS: POSITIVE DIFF @See below
[2018-12-21] MEDS: INSULIN ASPART [NOVOLOG] 3 ML PEN SC ×4 (08:02→22:33)
[2018-12-21 08:03] LABS: PLATELET COUNT 89 10^3/UL (140-415)
[2018-12-21 08:30] LABS: ANION GAP 10 (5-13); BLOOD UREA NITROGEN 37 mg/dl (7-20); CALCIUM 8.4 mg/dl (8.4-10.2); CARBON DIOXIDE 13 mmol/L (21-31); CHLORIDE 112 mmol/L (97-110); CREATININE 2.86 mg/dl (0.44-1.00); Estimated GFR 17 mL/min (>60); GLUCOSE 142 mg/dl (70-220); PHOSPHORUS 4.3 mg/dl (2.5-4.9); POTASSIUM 4.1 mmol/L (3.5-5.1); SODIUM 135 mmol/L (135-144)
[2018-12-21] MEDS: PROPRANOLOL 20 MG TAB PO ×3 (09:00→22:17)
[2018-12-21] MEDS: RIFAXIMIN 550 MG TAB PO ×2 (09:47→22:17)
[2018-12-21] MEDS: CITRIC ACID/NA CITRATE 30 ML CUP PO ×2 (09:47→22:20)
[2018-12-21] MEDS: MULTIVITAMINS THERAPEUTIC TAB PO (09:47)
[2018-12-21] MEDS: NYSTATIN 30 GM POWDER BTL TOP ×2 (09:47→22:17)
[2018-12-21] MEDS: FERROUS SULFATE (EC) 325 MG TAB PO ×2 (09:48→22:16)
[2018-12-21] MEDS: GABAPENTIN 300 MG CAP PO ×3 (09:48→22:16)
[2018-12-21] MEDS: LACTOBACILLUS RHAMNOSUS CAP PO ×2 (09:48→22:16)
[2018-12-21 18:02] LABS: TROPONIN-I 0.013 ng/ml (0.000-0.120)
[2018-12-21 19:43] LABS: DIGOXIN < 0.4 ng/ml (1.0-2.0); TROPONIN-I < 0.012 ng/ml (0.000-0.120)
[2018-12-22] MEDS: ACCU-CHEK XX (02:00)
[2018-12-22] MEDS: PANTOPRAZOLE (EC) 40 MG TAB PO ×2 (06:00→17:39)
[2018-12-22] MEDS: LACTULOSE 30ML CUP PO ×4 (06:00→17:35)
[2018-12-22 06:35] LABS: ADD MAN DIFF? NO
[2018-12-22 06:43] LABS: WHITE BLOOD COUNT 5.2 10^3/ul (4.8-10.8)
[2018-12-22 06:43] LABS: ABNORMAL IP MESSAGE 1; BASOPHILS % 0.4 % (0.0-2.0); EOSINOPHILS # 0.2 10^3/ul (0.0-0.5); EOSINOPHILS % 3.1 % (0.0-7.0); HEMATOCRIT 21.9 % (37.0-47.0); LYMPHOCYTES # 0.8 10^3/ul (0.8-2.9); LYMPHOCYTES % 14.8 % (15.0-51.0); MEAN CORPUSCULAR HEMOGLOBIN 31.1 pg (29.0-33.0); MEAN CORPUSCULAR VOLUME 97.3 fl (82.0-101.0); MEAN PLATELET VOLUME 9.2 fl (7.4-10.4); MONOCYTE # 0.6 10^3/ul (0.3-0.9); MONOCYTES % 10.6 % (0.0-11.0); NEUTROPHIL # 3.7 10^3/ul (1.6-7.5); NEUTROPHILS % 70.3 % (39.0-77.0); PLATELET COUNT 82 10^3/UL (140-415); RED BLOOD COUNT 2.25 10^6/ul (4.20-5.40); RED CELL DISTRIBUTION WIDTH 15.9 % (11.5-14.5)
[2018-12-22 06:55] LABS: POSITIVE DIFF @See below
[2018-12-22 07:12] LABS: ANION GAP 9 (5-13); BLOOD UREA NITROGEN 37 mg/dl (7-20); CALCIUM 8.4 mg/dl (8.4-10.2); CARBON DIOXIDE 14 mmol/L (21-31); CHLORIDE 110 mmol/L (97-110); CREATININE 2.92 mg/dl (0.44-1.00); Estimated GFR 16 mL/min (>60); GLUCOSE 124 mg/dl (70-220); POTASSIUM 4.5 mmol/L (3.5-5.1); SODIUM 133 mmol/L (135-144)
[2018-12-22 07:20] LABS: MAGNESIUM 1.9 mg/dl (1.7-2.5)
[2018-12-22 07:20] LABS: PHOSPHORUS 4.9 mg/dl (2.5-4.9)
[2018-12-22 07:25] LABS: IRON 68 ug/dl (35-150)
[2018-12-22] MEDS: LEVOTHYROXINE 50 MCG TAB PO (07:26)
[2018-12-22 07:30] LABS: TROPONIN-I 0.025 ng/ml (0.000-0.120)
[2018-12-22 07:34] LABS: % IRON SATURATION 32 % SAT (22-52); TOTAL IRON BINDING CAPACITY 211 ug/dl (241-421)
[2018-12-22] MEDS: INSULIN ASPART [NOVOLOG] 3 ML PEN SC ×4 (07:57→20:53)
[2018-12-22] MEDS: PROPRANOLOL 20 MG TAB PO ×3 (09:00→20:49)
[2018-12-22] MEDS: LACTOBACILLUS RHAMNOSUS CAP PO ×2 (09:07→20:48)
[2018-12-22] MEDS: RIFAXIMIN 550 MG TAB PO ×2 (09:07→20:48)
[2018-12-22] MEDS: FERROUS SULFATE (EC) 325 MG TAB PO ×2 (09:07→20:49)
[2018-12-22] MEDS: GABAPENTIN 300 MG CAP PO ×3 (09:07→20:49)
[2018-12-22] MEDS: NYSTATIN 30 GM POWDER BTL TOP ×2 (09:08→20:53)
[2018-12-22] MEDS: ENOXAPARIN 30 MG/0.3 ML SYG SC (09:20)
[2018-12-22] MEDS: MULTIVITAMINS THERAPEUTIC TAB PO (09:21)
[2018-12-22] MEDS: CIPROFLOXACIN 500 MG TAB PO (11:31)
[2018-12-22] MEDS: CITRIC ACID/NA CITRATE 30 ML CUP PO ×2 (11:31→20:48)
[2018-12-22] MEDS: SOD CHLORIDE 0.9% 500 ML IV ×2 (15:52→18:28)
[2018-12-22 22:52] LABS: HEMATOCRIT 21.9 % (37.0-47.0); HEMOGLOBIN 7.1 g/dl (12.0-16.0)
[2018-12-23] MEDS: ACCU-CHEK XX (02:00)
[2018-12-23] MEDS: PANTOPRAZOLE (EC) 40 MG TAB PO ×2 (05:59→17:35)
[2018-12-23] MEDS: LEVOTHYROXINE 50 MCG TAB PO (05:59)
[2018-12-23] MEDS: CIPROFLOXACIN 500 MG TAB PO (05:59)
[2018-12-23 06:39] LABS: ADD MAN DIFF? NO
[2018-12-23 06:42] LABS: WHITE BLOOD COUNT 5.1 10^3/ul (4.8-10.8)
[2018-12-23 06:42] LABS: ABNORMAL IP MESSAGE 1; BASOPHILS % 0.6 % (0.0-2.0); EOSINOPHILS # 0.2 10^3/ul (0.0-0.5); EOSINOPHILS % 3.2 % (0.0-7.0); HEMATOCRIT 20.6 % (37.0-47.0); LYMPHOCYTES # 0.9 10^3/ul (0.8-2.9); LYMPHOCYTES % 18.6 % (15.0-51.0); MEAN CORPUSCULAR HEMOGLOBIN 30.8 pg (29.0-33.0); MEAN CORPUSCULAR HGB CONC 31.6 g/dl (32.0-37.0); MEAN CORPUSCULAR VOLUME 97.6 fl (82.0-101.0); MEAN PLATELET VOLUME 9.9 fl (7.4-10.4); MONOCYTE # 0.6 10^3/ul (0.3-0.9); MONOCYTES % 12.1 % (0.0-11.0); NEUTROPHIL # 3.3 10^3/ul (1.6-7.5); NEUTROPHILS % 64.9 % (39.0-77.0); PLATELET COUNT 88 10^3/UL (140-415); RED BLOOD COUNT 2.11 10^6/ul (4.20-5.40); RED CELL DISTRIBUTION WIDTH 15.8 % (11.5-14.5)
[2018-12-23 06:52] LABS: HEMOGLOBIN 6.5 g/dl (12.0-16.0); POSITIVE DIFF @See below
[2018-12-23 07:09] LABS: TROPONIN-I 0.015 ng/ml (0.000-0.120)
[2018-12-23 07:18] LABS: ALANINE AMINOTRANSFERASE 21 IU/L (13-69); ALBUMIN 2.5 g/dl (3.3-4.9); ALBUMIN/GLOBULIN RATIO 0.59; ALKALINE PHOSPHATASE 57 IU/L (42-121); ANION GAP 10 (5-13); ASPARTATE AMINO TRANSFERASE 31 IU/L (15-46); BILIRUBIN,INDIRECT 0.4 mg/dl (0-1.1); BILIRUBIN,TOTAL 0.4 mg/dl (0.2-1.3); BLOOD UREA NITROGEN 40 mg/dl (7-20); CALCIUM 8.1 mg/dl (8.4-10.2); CARBON DIOXIDE 14 mmol/L (21-31); CHLORIDE 106 mmol/L (97-110); CREATININE 3.02 mg/dl (0.44-1.00); Estimated GFR 16 mL/min (>60); GLUCOSE 124 mg/dl (70-220); MAGNESIUM 2.2 mg/dl (1.7-2.5); POTASSIUM 4.4 mmol/L (3.5-5.1); SODIUM 130 mmol/L (135-144); TOTAL PROTEIN 6.7 g/dl (6.1-8.1)
[2018-12-23 07:18] LABS: PHOSPHORUS 5.3 mg/dl (2.5-4.9)
[2018-12-23] MEDS: INSULIN ASPART [NOVOLOG] 3 ML PEN SC ×4 (07:55→21:13)
[2018-12-23] MEDS: CITRIC ACID/NA CITRATE 30 ML CUP PO ×2 (08:18→21:04)
[2018-12-23] MEDS: FERROUS SULFATE (EC) 325 MG TAB PO ×2 (08:21→21:04)
[2018-12-23] MEDS: GABAPENTIN 300 MG CAP PO ×3 (08:22→21:04)
[2018-12-23] MEDS: RIFAXIMIN 550 MG TAB PO ×2 (08:23→21:04)
[2018-12-23] MEDS: MULTIVITAMINS THERAPEUTIC TAB PO (08:24)
[2018-12-23] MEDS: NYSTATIN 30 GM POWDER BTL TOP ×2 (08:25→21:04)
[2018-12-23] MEDS: PROPRANOLOL 20 MG TAB PO ×3 (08:25→21:00)
[2018-12-23] MEDS: LACTOBACILLUS RHAMNOSUS CAP PO ×2 (08:25→21:03)
[2018-12-23] MEDS: ENOXAPARIN 30 MG/0.3 ML SYG SC (08:29)
[2018-12-23 09:28] LABS: ANISOCYTOSIS 2+ (0-0); BAND NEUTROPHILS % (M) 1 % (0-4); BURR CELLS 1+ (0-0); EOSINOPHILS % (M) 3 % (0-7); LYMPHOCYTES #M 0.8 10^3/ul (0.8-2.9); LYMPHOCYTES % (M) 17 % (15-51); MONOCYTE #M 0.5 10^3/ul (0.3-0.9); MONOCYTES % (M) 11 % (0-11); PLATELET ESTIMATE SIG DECREASED; POIKILOCYTOSIS 1+ (0-0); POLYCHROMASIA 3+ (0-0); REACTIVE LYMPHOCYTES% (M) 1 % (0-0); SEG NEUT #M 3.4 10^3/ul (1.6-7.5); SEGMENTED NEUTROPHILS (M) % 67 % (39-77); SMUDGE%M 3 % (0-0); TEAR DROP CELLS 1+ (0-0)
[2018-12-23 13:53] LABS: IMMEDIATE SPIN CROSSMATCH 1 4
[2018-12-23] MEDS: SOD CHLORIDE 0.9% 250 ML IV* (14:07)
[2018-12-24] MEDS: CIPROFLOXACIN 500 MG TAB PO ×2 (00:28→17:40)
[2018-12-24] MEDS: ACCU-CHEK XX (02:00)
[2018-12-24] MEDS: LEVOTHYROXINE 50 MCG TAB PO (06:02)
[2018-12-24] MEDS: PANTOPRAZOLE (EC) 40 MG TAB PO ×2 (06:02→17:40)
[2018-12-24] MEDS: LACTULOSE 30ML CUP PO (08:00)
[2018-12-24] MEDS: LACTOBACILLUS RHAMNOSUS CAP PO ×2 (08:36→20:27)
[2018-12-24] MEDS: RIFAXIMIN 550 MG TAB PO ×2 (08:36→20:27)
[2018-12-24] MEDS: CITRIC ACID/NA CITRATE 30 ML CUP PO ×2 (08:36→21:00)
[2018-12-24] MEDS: GABAPENTIN 300 MG CAP PO ×3 (08:36→20:27)
[2018-12-24] MEDS: NYSTATIN 30 GM POWDER BTL TOP ×2 (08:36→21:03)
[2018-12-24] MEDS: MULTIVITAMINS THERAPEUTIC TAB PO (08:36)
[2018-12-24] MEDS: FERROUS SULFATE (EC) 325 MG TAB PO ×2 (08:36→20:27)
[2018-12-24] MEDS: ENOXAPARIN 30 MG/0.3 ML SYG SC (08:46)
[2018-12-24] MEDS: INSULIN ASPART [NOVOLOG] 3 ML PEN SC ×4 (08:46→20:38)
[2018-12-24] MEDS: PROPRANOLOL 20 MG TAB PO ×3 (09:00→21:00)
[2018-12-24 14:31] LABS: HEMATOCRIT 26.6 % (37.0-47.0); HEMOGLOBIN 8.6 g/dl (12.0-16.0)
[2018-12-25] MEDS: ACCU-CHEK XX (02:00)
[2018-12-25] MEDS: LEVOTHYROXINE 50 MCG TAB PO (06:25)
[2018-12-25] MEDS: PANTOPRAZOLE (EC) 40 MG TAB PO ×2 (06:26→17:53)
[2018-12-25 06:56] LABS: ADD MAN DIFF? NO
[2018-12-25 06:59] LABS: ABNORMAL IP MESSAGE 1; BASOPHILS % 0.4 % (0.0-2.0); EOSINOPHILS # 0.2 10^3/ul (0.0-0.5); EOSINOPHILS % 3.7 % (0.0-7.0); HEMATOCRIT 24.1 % (37.0-47.0); HEMOGLOBIN 7.9 g/dl (12.0-16.0); LYMPHOCYTES # 0.7 10^3/ul (0.8-2.9); LYMPHOCYTES % 16.1 % (15.0-51.0); MEAN CORPUSCULAR HEMOGLOBIN 31.5 pg (29.0-33.0); MEAN CORPUSCULAR HGB CONC 32.8 g/dl (32.0-37.0); MEAN PLATELET VOLUME 9.6 fl (7.4-10.4); MONOCYTE # 0.6 10^3/ul (0.3-0.9); MONOCYTES % 13.9 % (0.0-11.0); PLATELET COUNT 81 10^3/UL (140-415); RED BLOOD COUNT 2.51 10^6/ul (4.20-5.40); RED CELL DISTRIBUTION WIDTH 16.4 % (11.5-14.5)
[2018-12-25 06:59] LABS: WHITE BLOOD COUNT 4.6 10^3/ul (4.8-10.8)
[2018-12-25 07:02] LABS: POSITIVE DIFF @See below
[2018-12-25 07:19] LABS: ANION GAP 10 (5-13); BLOOD UREA NITROGEN 48 mg/dl (7-20); CALCIUM 8.2 mg/dl (8.4-10.2); CARBON DIOXIDE 13 mmol/L (21-31); CHLORIDE 111 mmol/L (97-110); CREATININE 3.22 mg/dl (0.44-1.00); Estimated GFR 14 mL/min (>60); GLUCOSE 118 mg/dl (70-220); MAGNESIUM 2.2 mg/dl (1.7-2.5); PHOSPHORUS 5.3 mg/dl (2.5-4.9); POTASSIUM 4.5 mmol/L (3.5-5.1); SODIUM 134 mmol/L (135-144)
[2018-12-25] MEDS: INSULIN ASPART [NOVOLOG] 3 ML PEN SC ×4 (07:55→20:39)
[2018-12-25] MEDS: LACTULOSE 30ML CUP PO (08:00)
[2018-12-25] MEDS: MULTIVITAMINS THERAPEUTIC TAB PO (08:42)
[2018-12-25] MEDS: FERROUS SULFATE (EC) 325 MG TAB PO ×2 (08:42→21:19)
[2018-12-25] MEDS: LACTOBACILLUS RHAMNOSUS CAP PO ×2 (08:42→21:18)
[2018-12-25] MEDS: RIFAXIMIN 550 MG TAB PO ×2 (08:42→21:18)
[2018-12-25] MEDS: CITRIC ACID/NA CITRATE 30 ML CUP PO ×2 (08:42→21:18)
[2018-12-25] MEDS: GABAPENTIN 300 MG CAP PO ×3 (08:42→21:18)
[2018-12-25] MEDS: PROPRANOLOL 20 MG TAB PO ×3 (08:43→21:19)
[2018-12-25] MEDS: NYSTATIN 30 GM POWDER BTL TOP ×2 (08:43→21:20)
[2018-12-25] MEDS: EPOETIN 10000 UNITS/1 ML INJ (ESRD) SC (11:35)
[2018-12-25] MEDS ORDERED: ERTAPENEM SODIUM 1 GM in SOD CHLORIDE 0.9% 100 ML IVPB (13:00)
[2018-12-25] MEDS: ERTAPENEM SODIUM 0.5 GM in SOD CHLORIDE 0.9% 100 ML IVPB (15:31)
[2018-12-26] MEDS: ACCU-CHEK XX (02:00)
[2018-12-26] MEDS: PANTOPRAZOLE (EC) 40 MG TAB PO ×2 (06:15→17:40)
[2018-12-26] MEDS: LEVOTHYROXINE 50 MCG TAB PO (06:15)
[2018-12-26] MEDS: LACTULOSE 30ML CUP PO (08:00)
[2018-12-26 08:07] LABS: ADD MAN DIFF? NO
[2018-12-26] MEDS: INSULIN ASPART [NOVOLOG] 3 ML PEN SC ×4 (08:15→20:43)
[2018-12-26 08:17] LABS: ABNORMAL IP MESSAGE 1; BASOPHILS % 0.4 % (0.0-2.0); EOSINOPHILS # 0.1 10^3/ul (0.0-0.5); EOSINOPHILS % 2.1 % (0.0-7.0); HEMATOCRIT 23.2 % (37.0-47.0); HEMOGLOBIN 7.5 g/dl (12.0-16.0); LYMPHOCYTES # 0.9 10^3/ul (0.8-2.9); MEAN CORPUSCULAR HEMOGLOBIN 31.3 pg (29.0-33.0); MEAN CORPUSCULAR HGB CONC 32.3 g/dl (32.0-37.0); MEAN CORPUSCULAR VOLUME 96.7 fl (82.0-101.0); MEAN PLATELET VOLUME 8.8 fl (7.4-10.4); MONOCYTE # 0.7 10^3/ul (0.3-0.9); MONOCYTES % 13.9 % (0.0-11.0); NEUTROPHILS % 64.2 % (39.0-77.0); PLATELET COUNT 71 10^3/UL (140-415); RED CELL DISTRIBUTION WIDTH 16.1 % (11.5-14.5)
[2018-12-26 08:17] LABS: WHITE BLOOD COUNT 4.7 10^3/ul (4.8-10.8)
[2018-12-26 08:18] LABS: POSITIVE DIFF @See below
[2018-12-26 08:31] LABS: ANION GAP 10 (5-13); BLOOD UREA NITROGEN 54 mg/dl (7-20); CALCIUM 8.2 mg/dl (8.4-10.2); CARBON DIOXIDE 16 mmol/L (21-31); CHLORIDE 108 mmol/L (97-110); CREATININE 3.26 mg/dl (0.44-1.00); Estimated GFR 14 mL/min (>60); GLUCOSE 146 mg/dl (70-220); MAGNESIUM 2.2 mg/dl (1.7-2.5); PHOSPHORUS 5.3 mg/dl (2.5-4.9); POTASSIUM 4.8 mmol/L (3.5-5.1); SODIUM 134 mmol/L (135-144)
[2018-12-26] MEDS: FERROUS SULFATE (EC) 325 MG TAB PO ×2 (08:44→20:26)
[2018-12-26] MEDS: RIFAXIMIN 550 MG TAB PO ×2 (08:44→20:26)
[2018-12-26] MEDS: GABAPENTIN 300 MG CAP PO ×3 (08:44→20:28)
[2018-12-26] MEDS: LACTOBACILLUS RHAMNOSUS CAP PO ×2 (08:44→20:26)
[2018-12-26] MEDS: MULTIVITAMINS THERAPEUTIC TAB PO (08:44)
[2018-12-26] MEDS: PROPRANOLOL 20 MG TAB PO ×3 (08:45→20:28)
[2018-12-26] MEDS: CITRIC ACID/NA CITRATE 30 ML CUP PO ×2 (08:45→20:25)
[2018-12-26] MEDS: NYSTATIN 30 GM POWDER BTL TOP ×2 (08:51→20:28)
[2018-12-26] MEDS: ERTAPENEM SODIUM 0.5 GM in SOD CHLORIDE 0.9% 100 ML IVPB (14:50)
[2018-12-26] MEDS: ACETAMINOPHEN 325 MG TAB PO (17:40)
[2018-12-27] MEDS: ACCU-CHEK XX (03:00)
[2018-12-27 06:17] LABS: ADD MAN DIFF? NO
[2018-12-27 06:43] LABS: ANION GAP 13 (5-13); BLOOD UREA NITROGEN 55 mg/dl (7-20); CALCIUM 8.5 mg/dl (8.4-10.2); CARBON DIOXIDE 16 mmol/L (21-31); CHLORIDE 107 mmol/L (97-110); Estimated GFR 14 mL/min (>60); GLUCOSE 123 mg/dl (70-220); MAGNESIUM 2.1 mg/dl (1.7-2.5); PHOSPHORUS 5.6 mg/dl (2.5-4.9); POTASSIUM 4.8 mmol/L (3.5-5.1); SODIUM 136 mmol/L (135-144)
[2018-12-27] MEDS: LEVOTHYROXINE 50 MCG TAB PO (06:46)
[2018-12-27] MEDS: PANTOPRAZOLE (EC) 40 MG TAB PO ×2 (06:46→17:43)
[2018-12-27] MEDS: INSULIN ASPART [NOVOLOG] 3 ML PEN SC ×3 (07:55→17:50)
[2018-12-27 07:58] LABS: ABNORMAL IP MESSAGE 1; BASOPHILS % 0.5 % (0.0-2.0); EOSINOPHILS # 0.2 10^3/ul (0.0-0.5); EOSINOPHILS % 4.3 % (0.0-7.0); HEMATOCRIT 25.1 % (37.0-47.0); HEMOGLOBIN 8.1 g/dl (12.0-16.0); LYMPHOCYTES # 0.7 10^3/ul (0.8-2.9); LYMPHOCYTES % 18.6 % (15.0-51.0); MEAN CORPUSCULAR HEMOGLOBIN 31.3 pg (29.0-33.0); MEAN CORPUSCULAR HGB CONC 32.3 g/dl (32.0-37.0); MEAN CORPUSCULAR VOLUME 96.9 fl (82.0-101.0); MEAN PLATELET VOLUME 9.3 fl (7.4-10.4); MONOCYTE # 0.6 10^3/ul (0.3-0.9); MONOCYTES % 15.1 % (0.0-11.0); NEUTROPHIL # 2.4 10^3/ul (1.6-7.5); NEUTROPHILS % 61.2 % (39.0-77.0); PLATELET COUNT 68 10^3/UL (140-415); RED BLOOD COUNT 2.59 10^6/ul (4.20-5.40)
[2018-12-27 07:58] LABS: WHITE BLOOD COUNT 3.9 10^3/ul (4.8-10.8)
[2018-12-27 07:59] LABS: POSITIVE DIFF @See below
[2018-12-27] MEDS: LACTULOSE 30ML CUP PO (08:00)
[2018-12-27] MEDS: LACTOBACILLUS RHAMNOSUS CAP PO (08:59)
[2018-12-27] MEDS: GABAPENTIN 300 MG CAP PO ×2 (08:59→12:16)
[2018-12-27] MEDS: MULTIVITAMINS THERAPEUTIC TAB PO (08:59)
[2018-12-27] MEDS: NYSTATIN 30 GM POWDER BTL TOP (08:59)
[2018-12-27] MEDS: FERROUS SULFATE (EC) 325 MG TAB PO (08:59)
[2018-12-27] MEDS: RIFAXIMIN 550 MG TAB PO (08:59)
[2018-12-27] MEDS: CITRIC ACID/NA CITRATE 30 ML CUP PO (09:00)
[2018-12-27] MEDS: PROPRANOLOL 20 MG TAB PO ×2 (09:00→12:05)
[2018-12-27] MEDS: ACETAMINOPHEN 325 MG TAB PO (12:29)
[2018-12-27] MEDS: ERTAPENEM SODIUM 0.5 GM in SOD CHLORIDE 0.9% 100 ML IVPB (14:35)
== END 2018-12-27 20:20 | DRG 808 ==
LOC: E/R 13:15 → TEL 21:15
PROC: 30233R1 Transfusion of Nonautologous Platelets into Peripheral Vein, Percutaneous Approach (ICD-10-PCS; principal; 2018-12-17 16:00)
PROC: 30233N1 Transfusion of Nonautologous Red Blood Cells into Peripheral Vein, Percutaneous Approach (ICD-10-PCS; 2018-12-17 16:00)
PROC: 0DJ08ZZ Inspection of Upper Intestinal Tract, Via Natural or Artificial Opening Endoscopic (ICD-10-PCS; 2018-12-17 16:00)
PROC: 0DJD8ZZ Inspection of Lower Intestinal Tract, Via Natural or Artificial Opening Endoscopic (ICD-10-PCS; 2018-12-17 16:00)
DX: D61.818 Other pancytopenia (principal); G92 Toxic encephalopathy; N17.0 Acute kidney failure with tubular necrosis; N30.01 Acute cystitis with hematuria; D68.4 Acquired coagulation factor deficiency; I47.1 Supraventricular tachycardia; E87.2 Acidosis; K76.6 Portal hypertension; N18.4 Chronic kidney disease, stage 4 (severe); N13.6 Pyonephrosis; K72.90 Hepatic failure, unspecified without coma; D63.8 Anemia in other chronic diseases classified elsewhere; B19.20 Unspecified viral hepatitis C without hepatic coma; E11.22 Type 2 diabetes mellitus with diabetic chronic kidney disease; E03.9 Hypothyroidism, unspecified; E66.01 Morbid (severe) obesity due to excess calories; I12.9 Hypertensive chronic kidney disease with stage 1 through stage 4 chronic kidney disease, or unspecified chronic kidney disease; I48.0 Paroxysmal atrial fibrillation; K29.70 Gastritis, unspecified, without bleeding; K74.60 Unspecified cirrhosis of liver; K42.9 Umbilical hernia without obstruction or gangrene; K25.9 Gastric ulcer, unspecified as acute or chronic, without hemorrhage or perforation; R53.83 Other fatigue; R16.1 Splenomegaly, not elsewhere classified; R53.81 Other malaise; B96.1 Klebsiella pneumoniae [K. pneumoniae] as the cause of diseases classified elsewhere; B96.20 Unspecified Escherichia coli [E. coli] as the cause of diseases classified elsewhere; Z68.36 Body mass index [BMI] 36.0-36.9, adult; Z22.322 Carrier or suspected carrier of Methicillin resistant Staphylococcus aureus; Z16.12 Extended spectrum beta lactamase (ESBL) resistance; Z90.49 Acquired absence of other specified parts of digestive tract; Z79.4 Long term (current) use of insulin
CPT/HCPCS: 36415; 36430; 36600; 70450; 71045; 74176; 76775; 80048; 80053; 80061; 80076; 80162; 81001; 81003; 82043; 82140; 82270; 82306; 82550; 82553; 82607; 82652; 82728; 82746; 82803; 82962; 83036; 83540; 83735; 83970; 84100; 84155; 84300; 84443; 84484; 85014; 85018; 85025; 85610; 85730; 86704; 86706; 86803; 86850; 86900; 86901; 86920; 87081; 87086; 88104; 93005; 96374; 97110; 97116; 97162; 97530; 99285-25